=== PATIENT | female | born 1970 | race Caucasian/White ===

== ENCOUNTER 2019-12-27 09:23 | Emergency (ER) | payer BC, SELFPAY ==
--- NOTE | ~2019-12-27 | XR_ITS ---
XR foot LT min 3V DATE: 12/27/2019 10:45 INDICATION: Left foot pain and swelling following injury from fall on stairs. Pain at second and thir d and fourth metatarsals TECHNIQUE: 4 views COMPARISON: None FINDINGS: There are transverse fractures at the junction of the base and shaft of the second through fourth metatarsal bones with up to approximately 2.5 mm lateral displacement. No other fracture or dislocation is detected. IMPRESSION: Fracture of second through fourth metatarsal bones Reviewed, dictated and finalized at location A.
[2019-12-27 09:42] VITALS: BP 128/77; PULSE 69; RESP 17; TEMP 36.6; O2SAT 98
--- NOTE | 2019-12-27 10:38 | ED.LOWEXIN ---
HPI - Extremity Injury (Lower) General Chief Complaint: Extremity Injury, Lower <Keena Nichole PA-C - Last Filed: 12/27/19 11:26> Stated Complaint: foot pain <LINDSEY Peterson Last Filed: 12/27/19 11:26> Time Seen by Provider: 12/27/19 10:06 <Keena Nichole PA-C - Last Filed: 12/27/19 11:26> Source: patient <LINDSEY Peterson Last Filed: 12/27/19 11:26> Mode of arrival: ambulatory <LINDSEY Peterson Last Filed: 12/27/19 11:26> Limitations: no limitations <LINDSEY Peterson Last Filed: 12/27/19 11:26> History of Present Illness HPI Narrative: This is a 49-year-old female that presents to the emergency department for left foot pain after an injury last night. Reports she missed the last step and tripped and fell. Denies hitting her head or loss of consciousness. Reports that she has had pain and swelling in the left foot. Denies decreased range of motion or numbness. <LINDSEY Peterson Last Filed: 12/27/19 11:26> Related Data Home Medications: Home Medications Medication Instructions Recorded Confirmed aspirin 325 mg PO DAILY 12/27/19 <LINDSYE Peterson Last Filed: 12/27/19 11:26> Allergies/Adverse Reactions: Allergies Allergy/AdvReac Type Severity Reaction Status Date / Time No Known Allergies Allergy Verified 12/27/19 09:47 <LINDSEY Peterson Last Filed: 12/27/19 11:26> Review of Systems Review of Systems: Narrative: CONSTITUTIONAL: Denies fever MUSCULOSKELETAL: Reports joint pain, and myalgia. NEUROLOGIC: Denies numbness <LINDSEY Peterson Last Filed: 12/27/19 11:26> All systems reviewed & are unremarkable except as noted in HPI and below <LINDSEY Peterson Last Filed: 12/27/19 11:26> [facility] Past Medical History Medical History: Medical History (Updated 12/27/19 @ 11:25 by Keena Nichole PA-C) No active medical problems <Keena Nichole PA-C - Last Filed: 12/27/19 11:26> Social History Social History: Social History (Updated 12/27/19 @ 10:39 by Keena Nichole PA-C) Smoking status: Never smoker <Keena Nichole PA-C - Last Filed: 12/27/19 11:26> Exam Narrative: Exam Narrative: GENERAL: Well-appearing, well-nourished, and in no acute distress. HEAD: Normocephalic, atraumatic. EYES: EOMI. EXTREMITIES: Normal range of motion. Left foot with moderate edema and bruising to the dorsal surface. Normal DP pulses. Normal sensation SKIN: Warm, dry, no rash. NEURO: No focal deficits. Alert and oriented x3. PSYCH: Normal mood and affect <Keena Nichole PA-C - Last Filed: 12/27/19 11:26> Course Vital Signs Vital signs: Vital Signs Temperature 97.9 F 12/27/19 09:42 Pulse Rate 69 12/27/19 09:42 Respiratory Rate 17 12/27/19 09:42 Blood Pressure 128/77 12/27/19 09:42 Pulse Oximetry 98 12/27/19 09:42 Temperature 97.9 F 12/27/19 09:42 Pulse Rate 75 12/27/19 12:02 Respiratory Rate 16 12/27/19 12:02 Blood Pressure 174/75 H 12/27/19 12:02 Pulse Oximetry 97 12/27/19 12:02 <Keena Nichole PA-C - Last Filed: 12/27/19 11:26> Vital Signs Temperature 97.9 F 12/27/19 09:42 Pulse Rate 69 12/27/19 09:42 Respiratory Rate 17 12/27/19 09:42 Blood Pressure 128/77 12/27/19 09:42 Pulse Oximetry 98 12/27/19 09:42 Temperature 97.9 F 12/27/19 09:42 Pulse Rate 75 12/27/19 12:02 Respiratory Rate 16 12/27/19 12:02 Blood Pressure 174/75 H 12/27/19 12:02 Pulse Oximetry 97 12/27/19 12:02 <Larisa Flowers MD - Last Filed: 12/27/19 14:18> Procedures Orthopedic Splinting/Casting Injury #1: Splinting/Casting Date: 12/27/19 <Keena Nichole PA-C - Last Filed: 12/27/19 11:26> Splinting/Casting Time: 11:21 <Keena Nichole PA-C - Last Filed: 12/27/19 11:26> Side: left <Keena Nichole PA-C - Last Filed: 12/27/19 11:26> Upper Extremity Immobilizer:
--- NOTE | 2019-12-27 11:19 | PC.NURSE ---
rn report by shannan to lynsey mckinney
--- NOTE | 2019-12-27 11:40 | PC.NURSE ---
diane wright at bedside for reassessment of pt short leg and crutches placement. erp ok splinting.
[2019-12-27 12:02] VITALS: BP 174/75; PULSE 75; RESP 16; O2SAT 97
== END 2019-12-27 12:03 | disposition home or self-care (01) ==
PROVIDERS: Emergency Provider General Practice
DX: S92.322A Displaced fracture of second metatarsal bone, left foot, initial encounter for closed fracture (principal); S92.332A Displaced fracture of third metatarsal bone, left foot, initial encounter for closed fracture; S92.342A Displaced fracture of fourth metatarsal bone, left foot, initial encounter for closed fracture; W10.9XXA Fall (on) (from) unspecified stairs and steps, initial encounter
CPT/HCPCS: 29515; 73630; 99284; A9270

== ENCOUNTER 2019-12-28 13:46 | Outpatient (CLI) | payer BC, SELFPAY ==
--- NOTE | ~2019-12-28 | CT_ITS ---
EXAMINATION: CT foot LT wo con DATE: 12/28/2019 15:02 INDICATION: Mid foot fractures. TECHNIQUE: High resolution computed tomography (CT) of the left foot was performed without intravenou s contrast. Additional sagittal and coronal reconstructions were performed. Automated exposure contro l and iterative reconstruction technique were employed. The dose-length product was 323.32 mGy-cm. COMPARISON: Left foot radiographs dated 12/27/2019 FINDINGS: Small minimally displaced intra-articular fracture along the plantar rim of the base of the first met atarsal. Transverse extra articular fracture at the proximal metaphyseal region of the second metatar yris located 1.5 cm distal to the proximal articular surface and with 3-4 mm lateral displacement. Min imally displaced oblique intra-articular fracture at the medial aspect of the base of the third metat arsal with 1.5 mm lateral subluxation of the main distal fragment. There are similar orientation disp lacement along an oblique intra-articular fracture at the medial base of the fourth proximal phalanx. There appear to be additional nondisplaced oblique fracture at the lateral base of the third and fou rth metatarsals. No other fractures identified. Alignment and joint spaces are normal throughout the remainder of the left foot. IMPRESSION: 1. Lisfranc joint injury with nondisplaced to mildly displaced fractures at the bases of the first-fo urth metatarsals as detailed above. Reviewed, dictated and finalized at location A. IMPRESSION: 1. Lisfranc joint injury with nondisplaced to mildly displaced fractures at the bases of the first-fourth metatarsals as detailed above.
== END 2019-12-28 13:47 | disposition home or self-care (01) ==
PROVIDERS: Visit Provider Orthopaedic Surgery
DX: S92.812A Other fracture of left foot, initial encounter for closed fracture (principal); X58.XXXA Exposure to other specified factors, initial encounter
CPT/HCPCS: 73700

== ENCOUNTER 2020-01-03 00:19 | Outpatient (CLI) | payer BC, SELFPAY ==
[2020-01-03 17:26] LABS: SARS-CoV-2 RNA PCR Negative
== END 2020-01-03 00:20 | disposition home or self-care (01) ==
LOC: ANHCOVIDDT 00:19
PROVIDERS: Visit Provider Orthopaedic Surgery
DX: Z01.812 Encounter for preprocedural laboratory examination (principal); Z20.828 Contact with and (suspected) exposure to other viral communicable diseases
CPT/HCPCS: 87635; C9803; U0003

== ENCOUNTER 2020-01-05 01:05 | Day surgery (SDC) | payer BC, SELFPAY ==
[2020-01-02 08:28] VITALS: BMI 30.7
[2020-01-05] VITALS (8 sets, daily range): BP systolic 120–146; BP diastolic 65–87; PULSE 73–93; RESP 14–17; TEMP 36.2–36.6; O2SAT 97–100
--- NOTE | ~2020-01-05 | XR_ITS ---
EXAMINATION: XR surgery orthopedic DATE: 01/05/2020 11:03 INDICATION: ORIF fracture of the second metatarsal the left foot. TECHNIQUE: 3 fluoroscopic spot images of the left midfoot were obtained during procedure performed by Dr. Fulton. Radiologist was not present for the imaging or procedure. The amount of fluoroscopy aj e used during this procedure was 0.2 minutes. COMPARISON: CT dated 12/28/2019 FINDINGS: Interval reduction to near anatomic alignment and dorsal plate and screw fixation across the fracture at the base of the left second metatarsal. There are additional minimally displaced intra-articular fractures at the base of the third and fourth metatarsals which remain unfixed. No evident incongruit y at the articular surfaces along the Lisfranc joint. The previously seen small fracture at the plant ar/medial base of the first metatarsal is not clearly visualized likely remaining in essentially mira omic alignment. No new fractures identified. Joint spaces are normal. IMPRESSION: 1. Internal fixation of a fracture at the base of the second metatarsal which is in near anatomic ali gnment. 2. Near-anatomic alignment of unfixed fractures at the base of the first, third and fourth metatarsal s. Reviewed, dictated and finalized at location A. IMPRESSION: 1. Internal fixation of a fracture at the base of the second metatarsal which i s in near anatomic alignment. 2. Near-anatomic alignment of unfixed fractures at the base of the first, third and fourth metatarsals.
--- NOTE | 2020-01-05 07:06 | WPDHPUPDATE1 ---
History and Physical Update Update Date/Time: 01/05/20 07:06 History and Physical has been reviewed, including an updated exam of the patient. There are NO changes in the patient's condition. Covid test negative. Risks, benefits, and alternatives have been discussed and questions answered. Patient agrees to proceed with procedure.
[2020-01-05] MEDS: LACTATED RINGERS 1,000 ML 30 ML IV CONT (08:16)
[2020-01-05] MEDS: ACETAMINOPHEN 500 MG TABLET 1000 MG PO (08:16)
[2020-01-05] MEDS: KETOROLAC 15 MG/ML VIAL (*BKC) IV PUSH (08:17)
--- NOTE | 2020-01-05 08:17 | WPDANESEPPF ---
Anes - Initial Pre Proc Eval Procedure: Operation Date: 01/05/20 09:30 Proposed Procedures p Open Reduction Internal Fixation Of Left Second Metatarsal and Possible Third Metatarsal and Possible Fourth Metatarsal - Bang Fulton MD Date/Time: 01/05/20 08:17 Surgeon: Bang Fulton MD Pre Op Diagnosis: Left Foot Metatarsal Fractures Patient Data Age: 49 Gender: F Height: 5 ft 5 in Weight: 89.2 kg Allergies Allergy/AdvReac Type Severity Reaction Status Date / Time No Known Allergies Allergy Verified 01/05/20 07:44 Home Medications Medication Instructions Recorded Confirmed Type aspirin 325 mg PO DAILY 12/27/19 01/02/20 History hydrocodone-acetaminophen 1 tablet PO Q6H PRN #20 tablet 12/27/19 01/05/20 Rx bupropion HCl 75 mg PO DAILY 01/02/20 01/05/20 History sumatriptan succinate 100 mg PO DAILY PRN 01/02/20 01/05/20 History venlafaxine 100 mg PO DAILY 01/02/20 01/05/20 History Patient hx anesthesia problems: none Family hx anesthesia problems: none [facility] Past Medical History Medical History (Updated 01/05/20 @ 08:11 by Demian Montero MD) Migraine No active medical problems Social History Social History Smoking status: Never smoker Alcohol intake: never Substance use: unknown 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 Questions were solicited and answers provided to the satisfaction of the patient/family/POA.
[2020-01-05] MEDS: SCOPOLAMINE 1.5 MG PATCH TRANSDERM (08:37)
[2020-01-05] MEDS: ceFAZolin 2 GM/D5W 50 ML 2 GM/50 ML BAG IVPB (10:05)
--- NOTE | 2020-01-05 11:37 | PM.PROC ---
Procedure Note - Detailed Date of procedure: 01/05/20 Pre-op diagnosis: Left Foot Metatarsal Fractures Post-op diagnosis: same Procedure performed: Open reduction internal fixation left 2nd metatarsal fracture Description of procedure: Indications: Patient is a 49-year-old woman who fell and sustained a left foot 2nd 3rd and 4th metatarsal fractures. Displacement of the 2nd metatarsal noted. She presents for operative treatment. What was done: Patient identified in the preoperative holding. Informed consent given. Operative extremity marked. Patient received intravenous antibiotics. Patient brought to the operating room where underwent general anesthetic by anesthesia team. Positioned supine on operating room table. Time-out performed confirming the patient, site of the surgery and the plan. Left foot prepped draped usual sterile surgical fashion using ChloraPrep skin solution. Foot and ankle exsanguinated and a calf tourniquet inflated to 225 mmHg. Dorsal longitudinal incision made over the base of the 2nd metatarsal with a 15 blade knife. Hemostasis controlled electrocautery. Care taken to isolate and protect the neurovascular elements. Fascia incised in line with skin incision. The base of the 2nd metatarsal was exposed and the fracture identified. This was able to be reduced and verified with image intensification. Fixation achieved with a 4 hole 2.0 mm plate with 2 screws proximal and 2 screws distal to the fracture site. Image intensification confirm reduction and placement of the hardware. Wound thoroughly irrigated antibiotic solution. Tourniquet released and bleeding controlled with Electrocautery. Soft tissue repaired with 3 0 Monocryl interrupted suture. Skin repaired with 4 O nylon in a running suture. Sterile dressing applied. The patient was then woken from anesthesia, extubated and taken to the recovery room in stable condition. All sponge, needle, instrument counts were correct at the end of the case. Implants: Arthrex 2.0 mm full ring hole plate with 4 2.0 mm screws Anesthesia: GLMA Surgeon: Bang Fulton MD Core Machine Tender: 1st assistant finance manager Estimated blood loss (mL): 10 Tourniquet time (min): 32 Drains: No Packing: No Pathology: none sent Complications: None Condition: stable Disposition: PACU
== END 2020-01-05 13:09 | disposition home or self-care (01) ==
PROVIDERS: Visit Provider Orthopaedic Surgery
PROC: (CPT 28485; principal; 2020-01-05 09:30)
DX: S92.322A Displaced fracture of second metatarsal bone, left foot, initial encounter for closed fracture (principal); S92.335A Nondisplaced fracture of third metatarsal bone, left foot, initial encounter for closed fracture; S92.345A Nondisplaced fracture of fourth metatarsal bone, left foot, initial encounter for closed fracture; W19.XXXA Unspecified fall, initial encounter
CPT/HCPCS: 28485; A9270; J0690; J1100; J1170; J1885; J2250; J2405; J2704; J3010; J7120